=== PATIENT | female | born 1965 | race Caucasian/White ===

== ENCOUNTER → 2023-06-30 | Outpatient (CLI) | payer MEDICAID ==
--- NOTE | 2023-06-30 15:05 | MM ---
Reason for Exam: Screening (asymptomatic). Last mammogram was performed 9 year(s) and 7 month(s) ago. Patient History: Menarche at age 15. Patient has no children. Postmenopausal. Currently using Hormonal Contraceptives, for 3 years. Mother had breast cancer. Risk Values: Celeste 5 year model risk: 2.3%. NCI Lifetime model risk: 15.5%. Prior Study Comparison: 03/15/2004 Screening Mammogram, [facility]. 05/23/2006 Bilateral Diagnostic Mammogram, [facility]. 12/10/2013 Bilateral Screening Mammogram, [facility]. Tissue Density: The breast tissue is heterogeneously dense. This may lower the sensitivity of mammography. Findings: Analyzed By CAD. The pattern is symmetrical. No significant interval change is evident. No suspicious groups of microcalcifications, spiculated or lobular masses, architectural distortion or other secondary signs of malignancy are mammographically apparent. Overall Assessment: Benign, BI-RAD 2 Management: Screening Mammogram of both breasts in 1 year. A negative mammogram report should not preclude additional follow up of suspicious palpable abnormalities. Patient should continue monthly self breast exam. A clinical breast exam by your physician is recommended on an annual basis and results should be correlated with mammographic findings. Electronically signed and approved by: Harris De Los Santos D.O. Radiologis
== END | disposition home or self-care (01) ==
LOC: RADMAMWWP 06:58
PROVIDERS: ATTEND Family Medicine
DX: Z12.31 Encounter for screening mammogram for malignant neoplasm of breast (principal); Z78.0 Asymptomatic menopausal state; Z80.3 Family history of malignant neoplasm of breast
CPT/HCPCS: 77063; 77067